=== PATIENT | female | born 1990 | race Two or more races ===

== ENCOUNTER 2021-02-10 17:04 | Emergency (ER) | payer MEDICAID ==
[~2021-02-10] VITALS: Ht 165.1 cm; Wt 90.7 kg
--- NOTE | 2021-02-10 17:25 | NUR ---
TO ER BED 1,CONNECTED TO THE MONITOR,EKG DONE PER PROTOCOL,AWAITING MD BAILEY
[2021-02-10] MEDS ORDERED: ASPIRIN 81 MG TAB.CHEW ONE (17:43)
[2021-02-10 17:44] LABS: BASOPHILS # (AUTO) 0.2 /CMM (0.0-0.2); EOSINOPHILS % (AUTO) 1.3 % (0.0-6.0); HEMATOCRIT 36 % (33-45); HEMOGLOBIN 11.8 g/dL (11.5-14.8); LYMPHOCYTES # (AUTO) 2.1 /CMM (0.8-4.8); LYMPHOCYTES % (AUTO) 13.2 % (20.0-44.0); MEAN CORPUSCULAR HGB CONC 33 g/dl (31.0-36.0); MEAN CORPUSCULAR VOLUME 78 fL (82-100); MONOCYTES # (AUTO) 0.8 /CMM (0.1-1.30); MONOCYTES % (AUTO) 4.8 % (2.0-12.0); NEUTROPHILS # (AUTO) 12.9 /CMM (1.8-8.9); NEUTROPHILS % (AUTO) 79.7 % (43.0-81.0); PLATELET COUNT (AUTO) 432 /CMM (150-450); RED BLOOD CELL COUNT(AUTO) 4.62 MIL/uL (4.0-5.2); WHITE BLOOD COUNT (AUTO) 16.1 K/uL (4.3-11.0)
[2021-02-10 17:56] LABS: CALCIUM, SERUM 8.6 mg/dL (8.5-10.1); CARBON DIOXIDE 27 mmol/L (21-32); CHLORIDE 104 mmol/L (98-107); CREATININE 0.7 mg/dL (0.6-1.3); GLUCOSE 105 mg/dL (74-106); POTASSIUM 3.2 mmol/L (3.5-5.1); SODIUM SERUM 138 mmol/L (136-145); UREA NITROGEN, BLOOD 11 mg/dL (7-18)
[2021-02-10] MEDS ORDERED: ASPIRIN 81 MG TAB.CHEW PO ONE (18:00)
[2021-02-10 18:02] LABS: ALANINE AMINOTRANSFERASE 25 U/L (12-78); ALBUMIN 3.5 g/dL (3.4-5.0); ALKALINE PHOSPHATASE 115 U/L (46-116); ASPARTATE AMINOTRANSFERASE 13 U/L (15-37); BILIRUBIN,DIRECT 0.1 mg/dL (0.0-0.2); BILIRUBIN,TOTAL 0.2 mg/dL (0.2-1.0); TOTAL PROTEIN, SERUM 7.4 g/dL (6.4-8.2)
[2021-02-10] MEDS ORDERED: LORAZEPAM 1 MG TABLET ONE (18:28)
[2021-02-10] MEDS ORDERED: LORAZEPAM 1 MG TABLET PO ONE (18:30)
--- NOTE | 2021-02-10 19:05 | NUR ---
rec'd report from THANH Padgett for cornelius
--- NOTE | 2021-02-10 19:14 | NUR ---
report given to Dawn meza for cornelius
[2021-02-10] MEDS ORDERED: POTASSIUM CHLORIDE 20 MEQ TAB.PRT.SR PO ONE ×2 (19:29→19:30)
[2021-02-10 20:41] LABS: COLOR,URINE RED (YELLOW)
[2021-02-10 20:43] LABS: BACTERIA,URINE 3+ /HPF (None Seen); RBC,URINE 51-80 /HPF (0-2)
[2021-02-10] MEDS ORDERED: CEFTRIAXONE 1GM BAG (ER ONLY) 1 GM/50 ML PIGGYBACK IV ONE (21:30)
[2021-02-10] MEDS ORDERED: CEFTRIAXONE 1GM BAG (ER ONLY) 50 ML IV ONE (21:32)
[2021-02-10] MEDS ORDERED: CEPH500C2 PO (21:52)
--- NOTE | 2021-02-10 22:07 | NUR ---
Patient discharged to home in stable condition. Written and verbal after care instructions given. Patient verbalizes understanding of instruction. IV removed. Catheter intact and site benign. Pressure and 4x4 applied to site. No bleeding noted. Pt ambulatory with a steady gait
[2021-02-10 22:13] VITALS: BP 110/65
== END 2021-02-10 22:07 | disposition home or self-care (01) ==
LOC: ER 17:07
DX: R07.89 Other chest pain (principal); F41.0 Panic disorder [episodic paroxysmal anxiety]; D72.829 Elevated white blood cell count, unspecified; E87.6 Hypokalemia; N12 Tubulo-interstitial nephritis, not specified as acute or chronic
CPT/HCPCS: 36415; 71045; 80048; 80076; 81001; 84484 ×2; 84703; 85025; 87086; 93005 ×3; 96365; 99285; J0696; 87186-TC